=== PATIENT | male | born 1965 | race Caucasian/White ===

== ENCOUNTER 2019-06-16 16:07 | Inpatient (IN) | payer OTHER ==
[~2019-06-16] VITALS: Ht 165.1 cm; Wt 64.9 kg
--- NOTE | 2019-06-16 17:20 | NUR ---
HEADACHE AND DIZZINESS X 2 HOURS FAN BLADE ALIGNER. PATIENT A/OX4, BREATHING EVEN AND UNLABORED, NO SOB NOTED. NEEDS ATTENDED.
--- NOTE | 2019-06-16 17:35 | NUR ---
PATIENT TAKEN TO CT
[2019-06-16] MEDS ORDERED: METOCLOPRAMIDE HCL 10 MG/2 ML VIAL ONE (17:49)
--- NOTE | 2019-06-16 17:55 | NUR ---
patient came back from ct.
[2019-06-16] MEDS ORDERED: METOCLOPRAMIDE HCL 10 MG/2 ML VIAL IV ONE (18:00)
[2019-06-16 18:16] LABS: BASOPHILS # (AUTO) 0.1 /CMM (0.0-0.2); BASOPHILS % (AUTO) 0.9 % (0.0-2.0); EOSINOPHILS % (AUTO) 3.7 % (0.0-6.0); HEMATOCRIT 32 % (39-51); HEMOGLOBIN 10.6 g/dL (13.5-17.5); LYMPHOCYTES # (AUTO) 1.7 /CMM (0.8-4.8); LYMPHOCYTES % (AUTO) 29.3 % (20.0-44.0); MEAN CORPUSCULAR HGB CONC 33 g/dl (31.0-36.0); MEAN CORPUSCULAR VOLUME 94 fL (80-96); MONOCYTES # (AUTO) 0.7 /CMM (0.1-1.30); MONOCYTES % (AUTO) 11.5 % (2.0-12.0); NEUTROPHILS # (AUTO) 3.2 /CMM (1.8-8.9); NEUTROPHILS % (AUTO) 54.6 % (43.0-81.0); PLATELET COUNT (AUTO) 281 /CMM (150-450); WHITE BLOOD COUNT (AUTO) 5.9 K/uL (4.3-11.0)
[2019-06-16 18:29] LABS: ALBUMIN 3.8 g/dL (3.4-5.0); BILIRUBIN,DIRECT 0.1 mg/dL (0.0-0.2); BILIRUBIN,TOTAL 0.4 mg/dL (0.2-1.0); CALCIUM, SERUM 7.8 mg/dL (8.5-10.1); TOTAL PROTEIN, SERUM 8.1 g/dL (6.4-8.2)
[2019-06-16 18:34] LABS: CREATININE 9.5 mg/dL (0.6-1.3); POTASSIUM 6.7 mmol/L (3.5-5.1)
--- NOTE | 2019-06-16 19:24 | NUR ---
CALLED [facility] [phone] LOLLY PAGED
--- NOTE | 2019-06-16 20:09 | NUR ---
REPORT GIVEN TO ANDRE GREY FOR CLARY. TO MS [facility]
[2019-06-16] MEDS ORDERED: CARVEDILOL 6.25 MG TABLET PO ONE (20:30)
[2019-06-16] MEDS ORDERED: HYDROCODONE/APAP 5/325MG 1 EACH TABLET PO PRN (20:30)
[2019-06-16] MEDS ORDERED: Z GUARD REMEDY 2 OZ OINT TP PRN (20:30)
[2019-06-16] MEDS ORDERED: ACETAMINOPHEN 325 MG TABLET PO PRN (20:30)
[2019-06-16] MEDS ORDERED: hydrALAZINE HCL 10 MG TABLET PO ONE (20:30)
[2019-06-16] MEDS ORDERED: ASPIRIN EC 81 MG TABLET.DR PO ONE ×3 (20:30→23:43)
[2019-06-16] MEDS ORDERED: ONDANSETRON HCL/PF 4 MG/2 ML VIAL IVP PRN (20:30)
--- NOTE | 2019-06-16 20:32 | NUR ---
PT TRANPORTED TO [place]IT ON [place] WITH EMT AND RN AT BEDSIDE. NAD NOTED. PT AMBULATED FROM R[place] TO BED W/O ASSIST
[2019-06-16 20:45] VITALS: BP 189/80
--- NOTE | 2019-06-16 20:45 | NUR ---
ADMISSION 53 y/o male admitted for Hyperkalemia. Patient is A/O x4. Ambulates independently, denies pain. Orientation to room, unit, staff. Skin intact, Right chest wall Perma cath. dressing clean and dry. Maintained safety.
[2019-06-16 21:00] VITALS: BP 163/78
--- NOTE | 2019-06-16 21:30 | NUR ---
HEMODIALYSIS Treatment dialysis done, patient tolerated well with 2L output drained.
--- NOTE | 2019-06-16 21:45 | NUR ---
NON ADMINISTERED MEDICATION Current BP 145/72 Pulse76, dialysis in progress. Patient refused Hydralazine and Carvedilol medication PO order once, education provided, verbalized understanding.
[2019-06-16] MEDS ORDERED: PANT40TA2 PO (21:54)
[2019-06-16] MEDS ORDERED: RANI-655 PO (21:54)
[2019-06-16] MEDS ORDERED: DOCU-270 PO (21:54)
[2019-06-16] MEDS ORDERED: VIT1TABL46 PO (21:54)
[2019-06-16] MEDS ORDERED: GLIP5TAB13 PO (21:54)
[2019-06-16] MEDS ORDERED: CYAN1TAB3 PO (22:20)
[2019-06-16] MEDS ORDERED: DEXTROSE 50%-WATER 50 ML DISP.SYRIN IV PRN (23:00)
--- NOTE | 2019-06-16 23:47 | NUR ---
LATE ADMINISTRATION Aspirin PO given late after dialysis treatment done.
[2019-06-17] VITALS (8 sets, daily range): BP systolic 160–180; BP diastolic 73–80
[2019-06-17] MEDS: hydrALAZINE HCL 25 MG TABLET PO PRN ×2 (05:16→17:07)
--- NOTE | 2019-06-17 06:11 | NUR ---
END OF SHIFT REPORT Patient in bed, A/O x4. Sinus rhythm in the Tele monitor. Right chest Perma cath dressing clean and dry. Critical Potassium level 6.7 prior admission to unit yesterday. Dialysis treatment with 2L output. Elevated BP 177/77, given PRN Hydralazine PO, denies headache, no c/o nausea/vomiting. Maintained safety. Will endorse to Oncoming RN.
[2019-06-17] MEDS: BLOOD SUGAR DIAGNOSTIC 1 EACH STRIP IN SCH ×4 (06:31→21:50)
[2019-06-17] MEDS: INSULIN REGULAR, HUMAN 100 UNIT/ML 3 ML VIAL SQ PRN ×3 (06:32→21:52)
[2019-06-17 07:58] LABS: BASOPHILS # (AUTO) 0.1 /CMM (0.0-0.2); BASOPHILS % (AUTO) 1.2 % (0.0-2.0); EOSINOPHILS % (AUTO) 3.9 % (0.0-6.0); HEMATOCRIT 31 % (39-51); HEMOGLOBIN 10.2 g/dL (13.5-17.5); LYMPHOCYTES # (AUTO) 1.2 /CMM (0.8-4.8); LYMPHOCYTES % (AUTO) 25.5 % (20.0-44.0); MEAN CORPUSCULAR HGB CONC 34 g/dl (31.0-36.0); MEAN CORPUSCULAR VOLUME 93 fL (80-96); MONOCYTES # (AUTO) 0.5 /CMM (0.1-1.30); MONOCYTES % (AUTO) 9.8 % (2.0-12.0); NEUTROPHILS # (AUTO) 2.8 /CMM (1.8-8.9); NEUTROPHILS % (AUTO) 59.6 % (43.0-81.0); PLATELET COUNT (AUTO) 261 /CMM (150-450); RED BLOOD CELL COUNT(AUTO) 3.27 MIL/uL (4.5-6.0); WHITE BLOOD COUNT (AUTO) 4.7 K/uL (4.3-11.0)
[2019-06-17] MEDS: CALCIUM ACETATE 667 MG TABLET PO SCH ×3 (08:34→17:07)
[2019-06-17] MEDS: glipiZIDE 5 MG TABLET PO SCH (08:34)
[2019-06-17] MEDS: PANTOPRAZOLE 40 MG TABLET.DR PO SCH (08:35)
[2019-06-17 08:54] LABS: THYROID STIMULATING HORMONE 2.435 uIU/mL (0.358-3.74)
[2019-06-17 08:56] LABS: ALBUMIN 3.3 g/dL (3.4-5.0); BILIRUBIN,TOTAL 0.3 mg/dL (0.2-1.0); CALCIUM, SERUM 7.9 mg/dL (8.5-10.1); MAGNESIUM 2.8 mg/dL (1.8-2.4); PHOSPHORUS 6.8 mg/dL (2.5-4.9); POTASSIUM 5.6 mmol/L (3.5-5.1); TOTAL PROTEIN, SERUM 7.2 g/dL (6.4-8.2)
[2019-06-17 09:00] LABS: CREATININE 8.5 mg/dL (0.6-1.3)
--- NOTE | 2019-06-17 12:18 | NUR ---
Social service consult requested by Dr. Ann for homelessness. Per chart review and MD notes, Pt is a 53-year-old male with a history of hypertension, diabetes, and end-stage renal disease on hemodialysis (, , Thu), presented to the ED for evaluation of occipital headache that onset 2 hours prior to arrival. Pt reported that he missed his dialysis yesterday due to unable to arrange transportation to the dialysis center. RN ADMISSION met with the pt bedside. Pt is alert and oriented x 4. Pt was getting his dialysis at time of assessment. RN ADMISSION introduced self and explained her role. Pt's mood is congruent. Pt is cooperative with RN ADMISSION. Pt states he is homeless and has been for the past 2 years. Prior to being homeless, pt was residing in an apartment and had a job. However, since being on dialysis, pt is not able to sustain employment. Pt states he goes to [facility] located at [facility] in [place]. However, pt is homeless in [place] [place] [facility]. Pt would like to have his dialysis center changed to a location in [place] [place]. Pt reports going to dialysis , Thu and Thursday. RN ADMISSION informed pt she will speak with case management regarding transfer of his dialysis center to [facility] in [place]. Pt has no steady source of income. 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 RN ADMISSION encouraged pt to apply for SSDI and GR/Food stamps. However, pt declined stating, they don't help with anything." Pt denies any drug and alcohol use. Pt. reports to smoke 1 to 2 cigarettes per day. Pt denies any current suicidal and homicidal ideations and visual/auditory hallucinations at this time. Pt is familiar with [facility] and has stayed there in the past. Pt states, he will go to the [facility] again. RN ADMISSION provided pt with active listening and supportive counseling. Pt was provided with [facility] [id number] [facility] list, along with the following resources: [facility] located at [address] [facility] [place] ; [place], [address] [place] ; [facility] [place], [address] [place] [place] ; [facility] Homeless Resource Directory which includes food stamps, transitional housing, showers and hot meals etc; Mental Health clinics such as [facility] ; [facility] Mental Health ; Health clinics;[facility] and Alcohol treatment centers such as [facility], ; [facility] Substance Abuse Hotline and [facility] . Pt will require a TAP card upon discharge. Homeless Patient Waiver Form was placed in pt's chart for pt to sign upon discharge. RN ADMISSION informed rn case manager Chava in regards to transfer of Dialysis center location per pt's request. No other social service needs are requested at this time. RN ADMISSION is available, if needed.
[2019-06-17] MEDS ORDERED: diphenhydrAMINE HCL ELIX 25 MG/10 ML UDC PO PRN (13:30)
--- NOTE | 2019-06-17 14:30 | NUR ---
MS RN NOTES PATIENT WAS SEEN BY ADAMA NGUYNE [facility] WAS PROVIDED PHONE NUMBERS FOR TRANSFORATION TO HD CENTER.
--- NOTE | 2019-06-17 16:00 | NUR ---
MS RN NOTES PATIENT STATES HAS CALLED THE PHONE NUMBERS AND THEY HAVE TOLD HIM THEY DON NOT COVER LONG DISTANCE RIDES FROM [place]. CLAY TEMPERER GAMAL MADE AWARE SHE STATES SHE WILL CONTACT THEM AND CONFIRM.
[2019-06-17] MEDS ORDERED: Calcium Acetate PO (17:26)
--- NOTE | 2019-06-17 19:31 | NUR ---
MS RN NOTES PATIENT IN BED RESTING NO SOB OR ACUTE DISTRESS NOTED. PATIENT ALERT, ORIENTED X 4. PATIENT REFUSING DISCHARGE STATING [facility] ARE CLOSED AND HE DOES NOT HAVE ANY PLACE TO LEAVE. HE STATES HE ALSO HAS NO TRANSPORTATION TO HD. ENDORSED CARE TO PM SHIFT.
--- NOTE | 2019-06-17 19:58 | NUR ---
MS RN OPENING NOTES PATIENT RECEIVED RESTING IN BED A/O X4. STABLE ON RA WITH BREATHING EVEN AND UNLABORED. NO SIGNS OF ACUTE DISTRESS. NO CURRENT COMPLAINTS OF PAIN OR DISCOMFORT. PATIENT WAS SUPPOSED TO BE DISCHARGED- BUT REFUSED. IV WAS ALREADY REMOVED. WILL FOLLOW UP AND CONTINUE TO MONITOR.
--- NOTE | 2019-06-18 06:28 | NUR ---
MS RN CLOSING NOTES PATIENT CURRENTLY RESTING IN BED A/O X 3. STABLE ON RA NO SIGNS OF SOB. NO SIGNS OF ACUTE DISTRESS. NO CURRENT COMPLAINTS OF PAIN OR DISCOMFORT. PATIENT PENDING DISCHARGE, NEEDS TRANSPORTATION AND LONG TERM. WILL ENDORSE TO ONCOMING SHIFT ABOUT CLARY
[2019-06-18] MEDS: BLOOD SUGAR DIAGNOSTIC 1 EACH STRIP IN SCH ×2 (06:36→11:49)
--- NOTE | 2019-06-18 06:36 | NUR ---
MS RN NOTES PATIENT FSBS 66- NO INSULIN GIVEN PER SLIDING SCALE
--- NOTE | 2019-06-18 07:55 | NUR ---
MS RN OPENING NOTES PT IN BED, ASLEEP, EASILY AROUSED, A/O X4. PT TOLERATING RA, WITH NO ACUTE RESPIRATORY DISTRESS NOTED. PT DENIES ANY PAIN OR DISCOMFORT AT THIS TIME. ALSO DENIES ANY QUESTIONS OR CONCERNS. NO IV ACCESS. PER DIRECTOR MICROBIOLOGY NURSE PT SUPPOSED TO GET DISCHARGE YESTERDAY BUT MISSED THE TRANSPORTATION. ALL DISCHARGE PAPERS ARE READY AND SIGNED. PT AWARE. PT KEPT COMFORTABLE IN BED. CALL LIGHT KEPT WITHIN REACH. PT'S BED IN LOWEST, LOCKED POSITION WITH SRX3. WILL CONTINUE PLAN OF CARE.
[2019-06-18 08:00] VITALS: BP 177/79
[2019-06-18] MEDS: CALCIUM ACETATE 667 MG TABLET PO SCH ×2 (08:19→12:03)
[2019-06-18] MEDS: PANTOPRAZOLE 40 MG TABLET.DR PO SCH (08:19)
[2019-06-18] MEDS: glipiZIDE 5 MG TABLET PO SCH (08:19)
[2019-06-18 08:21] VITALS: BP 177/79
[2019-06-18] MEDS: hydrALAZINE HCL 25 MG TABLET PO PRN (08:21)
[2019-06-18 09:40] LABS: BASOPHILS # (AUTO) 0.1 /CMM (0.0-0.2); BASOPHILS % (AUTO) 0.9 % (0.0-2.0); EOSINOPHILS % (AUTO) 3.5 % (0.0-6.0); HEMATOCRIT 32 % (39-51); HEMOGLOBIN 10.8 g/dL (13.5-17.5); LYMPHOCYTES # (AUTO) 1.5 /CMM (0.8-4.8); LYMPHOCYTES % (AUTO) 22.9 % (20.0-44.0); MEAN CORPUSCULAR HGB CONC 34 g/dl (31.0-36.0); MEAN CORPUSCULAR VOLUME 93 fL (80-96); MONOCYTES # (AUTO) 0.6 /CMM (0.1-1.30); MONOCYTES % (AUTO) 9.2 % (2.0-12.0); NEUTROPHILS % (AUTO) 63.5 % (43.0-81.0); PLATELET COUNT (AUTO) 241 /CMM (150-450); RED BLOOD CELL COUNT(AUTO) 3.44 MIL/uL (4.5-6.0); WHITE BLOOD COUNT (AUTO) 6.3 K/uL (4.3-11.0)
[2019-06-18 09:53] LABS: ALBUMIN 3.3 g/dL (3.4-5.0); BILIRUBIN,TOTAL 0.4 mg/dL (0.2-1.0); CALCIUM, SERUM 7.8 mg/dL (8.5-10.1); CREATININE 8.1 mg/dL (0.6-1.3); MAGNESIUM 2.6 mg/dL (1.8-2.4); PHOSPHORUS 7.2 mg/dL (2.5-4.9); POTASSIUM 5.3 mmol/L (3.5-5.1); TOTAL PROTEIN, SERUM 7.1 g/dL (6.4-8.2)
[2019-06-18] MEDS ORDERED: ATENOLOL 50 MG TABLET PO SCH (15:30)
--- NOTE | 2019-06-18 15:32 | NUR ---
MS HEEL ATTACHER NOTES PT A/O X4, AMBULATORY, BEING DISCHARGE TO A [facility]. PT TOLERATING RA, WITH NO ACUTE RESPIRATORY DISTRESS NOTED. PT DENIES ANY PAIN OR DISCOMFORT AT THE TIME OF DISCHARGE. HD TO [facility] ACCESS, DONE WITH 1800ML OUTPUT. SKIN INTACT, PT IN A HURRY TO GO BECAUSE HE'S CATCHING THE BUS TIMES. PT REFUSED FOR RN TO TAKE PICTURE OF THE SCAB, RN EXPLAINED UNIT PROTOCOL AND INSISTED TO REFUSE. PT REVIEWED AND SIGNED DISCHARGE PAPERS AND INVENTORY LIST. ALL BELONGINGS WITH THE PT. VITAL SIGNS STABLE. TAP CARD GIVEN TO PT. EGG SANDWICH AND APPLE JUICES REQUESTED BY PT TO TAKE, RN GAVE IT REQUESTED. PT HAPPY WITH THE CARE PROVIDED. PT ESCORTED TO THE LOBBY. CN/RENETTA AND HOSPITALIST/SA AWARE OF DISCHARGE. PT LEFT THE UNIT AT 1530.
[2019-06-18] MEDS ORDERED: SEVELAMER CARBONATE 800 MG TABLET PO SCH (18:00)
== END 2019-06-18 15:30 | disposition home or self-care (01) | DRG 425 ==
LOC: ER 16:14 → TELE 20:13 → MED 06-17 09:00
PROVIDERS: ADMIT Nurse Practitioner Acute Care
PROC: 5A1D70Z Performance of Urinary Filtration, Intermittent, Less than 6 Hours Per Day (ICD-10-PCS; 2019-06-16)
PROC: 5A1D70Z Performance of Urinary Filtration, Intermittent, Less than 6 Hours Per Day (ICD-10-PCS; principal; 2019-06-17)
PROC: 5A1D70Z Performance of Urinary Filtration, Intermittent, Less than 6 Hours Per Day (ICD-10-PCS; 2019-06-18)
DX: E87.5 Hyperkalemia (principal); E11.22 Type 2 diabetes mellitus with diabetic chronic kidney disease; I12.0 Hypertensive chronic kidney disease with stage 5 chronic kidney disease or end stage renal disease; N18.6 End stage renal disease; E87.1 Hypo-osmolality and hyponatremia; D63.1 Anemia in chronic kidney disease; E83.39 Other disorders of phosphorus metabolism; N25.81 Secondary hyperparathyroidism of renal origin; Z59.0 Homelessness; Z99.2 Dependence on renal dialysis; R51 Headache
CPT/HCPCS: 36415; 70450-TC; 80048-TC; 80053-TC; 80061-TC; 80076-TC; 82962-TC; 83540-TC; 83735-TC; 84100-TC; 84443-TC; 84484-TC; 85025-TC; 86706; 87081-TC; 87340; 90935-TC; 93307-TC; A6403; G0378; J1815; J2765; Q0163

== ENCOUNTER 2019-06-24 17:54 | Emergency (ER) | payer OTHER ==
[~2019-06-24] VITALS: Ht 165.1 cm; Wt 71.2 kg
[~2019-06-24 17:54] MED LIST: CYAN1TAB3 PO; Calcium Acetate PO; DOCU-270 PO; GLIP5TAB13 PO; PANT40TA2 PO; RANI-655 PO; VIT1TABL46 PO
--- NOTE | 2019-06-24 18:00 | NUR ---
BIB RA 78 FROM A BUS, C/O SHORTNESS OF BREATH X 1 Hr pt to bed 11, pt on monitor, vss, nadn oted, pending md villagomez
[2019-06-24 18:52] LABS: BASOPHILS % (AUTO) 0.7 % (0.0-2.0); EOSINOPHILS % (AUTO) 4.2 % (0.0-6.0); HEMATOCRIT 29 % (39-51); HEMOGLOBIN 9.8 g/dL (13.5-17.5); LYMPHOCYTES # (AUTO) 1.9 /CMM (0.8-4.8); LYMPHOCYTES % (AUTO) 36.2 % (20.0-44.0); MEAN CORPUSCULAR HGB CONC 34 g/dl (31.0-36.0); MEAN CORPUSCULAR VOLUME 95 fL (80-96); MONOCYTES # (AUTO) 0.5 /CMM (0.1-1.30); MONOCYTES % (AUTO) 9.1 % (2.0-12.0); NEUTROPHILS # (AUTO) 2.7 /CMM (1.8-8.9); NEUTROPHILS % (AUTO) 49.8 % (43.0-81.0); PLATELET COUNT (AUTO) 245 /CMM (150-450); RED BLOOD CELL COUNT(AUTO) 3.06 MIL/uL (4.5-6.0); WHITE BLOOD COUNT (AUTO) 5.4 K/uL (4.3-11.0)
[2019-06-24 19:04] LABS: CALCIUM, SERUM 7.9 mg/dL (8.5-10.1); CARBON DIOXIDE 28 mmol/L (21-32); CHLORIDE 96 mmol/L (98-107); GLUCOSE 164 mg/dL (74-106); SODIUM SERUM 134 mmol/L (136-145); UREA NITROGEN, BLOOD 61 mg/dL (7-18)
[2019-06-24 19:11] LABS: CREATININE 8.7 mg/dL (0.6-1.3)
[2019-06-24 19:30] VITALS: BP 130/65
[2019-06-24] MEDS ORDERED: SODIUM POLYSTYRENE SULFONATE 15 G/60 ML BOTTLE ONE (19:56)
[2019-06-24] MEDS ORDERED: SODIUM POLYSTYRENE SULFONATE 15 G/60 ML BOTTLE PO ONE (20:00)
--- NOTE | 2019-06-24 20:03 | NUR ---
Patient discharged to home in stable condition. Written and verbal after care instructions given. Patient verbalizes understanding of instruction. IV removed. Catheter intact and site benign. Pressure and 4x4 applied to site. No bleeding noted.
== END 2019-06-24 20:10 | disposition home or self-care (01) ==
LOC: ER 17:59
DX: E11.22 Type 2 diabetes mellitus with diabetic chronic kidney disease (principal); I12.0 Hypertensive chronic kidney disease with stage 5 chronic kidney disease or end stage renal disease; N18.6 End stage renal disease; Z99.2 Dependence on renal dialysis; Z79.899 Other long term (current) drug therapy
CPT/HCPCS: 36415; 71045-TC; 80048-TC; 84484-TC; 85025-TC

== ENCOUNTER 2020-01-09 19:49 | Inpatient (IN) | payer OTHER ==
[~2020-01-09] VITALS: Ht 160 cm; Wt 67.6 kg
--- NOTE | 2020-01-09 19:58 | NUR ---
PT AAOX4. 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 BS-302. PER RA HAS DIALYSIS AND HX OF HTN. NO ACUTE DISTRESS NOTED. PLACED ON MONITOR AND PULSE OX. ALVIN. AT BEDSIDE FOR EVAL.
--- NOTE | 2020-01-09 20:03 | NUR ---
EMT AT BEDSIDE FOR EKG.
[2020-01-09] MEDS ORDERED: MECLIZINE HCL 25 MG TABLET ONE (20:18)
[2020-01-09] MEDS ORDERED: MECLIZINE HCL 25 MG TABLET PO ONE (20:30)
--- NOTE | 2020-01-09 20:37 | NUR ---
SALOONKEEPER AT BEDSIDE FOR LABS.
--- NOTE | 2020-01-09 20:41 | NUR ---
RADIOLOGIST AT BEDSIDE FOR XRAY.
[2020-01-09 20:48] LABS: BASOPHILS # (AUTO) 0.1 /CMM (0.0-0.2); BASOPHILS % (AUTO) 1.5 % (0.0-2.0); HEMATOCRIT 27 % (39-51); HEMOGLOBIN 8.8 g/dL (13.5-17.5); LYMPHOCYTES # (AUTO) 1.4 /CMM (0.8-4.8); LYMPHOCYTES % (AUTO) 26.3 % (20.0-44.0); MEAN CORPUSCULAR HGB CONC 33 g/dl (31.0-36.0); MEAN CORPUSCULAR VOLUME 96 fL (80-96); MONOCYTES # (AUTO) 0.4 /CMM (0.1-1.30); MONOCYTES % (AUTO) 7.8 % (2.0-12.0); NEUTROPHILS # (AUTO) 3.2 /CMM (1.8-8.9); NEUTROPHILS % (AUTO) 61.4 % (43.0-81.0); PLATELET COUNT (AUTO) 346 /CMM (150-450); RED BLOOD CELL COUNT(AUTO) 2.81 MIL/uL (4.5-6.0); WHITE BLOOD COUNT (AUTO) 5.2 K/uL (4.3-11.0)
[2020-01-09 21:04] LABS: CALCIUM, SERUM 7.7 mg/dL (8.5-10.1); POTASSIUM 6.1 mmol/L (3.5-5.1)
[2020-01-09 21:06] LABS: CREATININE 12.2 mg/dL (0.6-1.3)
--- NOTE | 2020-01-09 21:16 | NUR ---
CALLED LAB FOR COVID SWAB
[2020-01-09] MEDS ORDERED: INSULIN REGULAR, HUMAN 100 UNIT/ML 10 ML VIAL IV ONE (21:30)
[2020-01-09] MEDS ORDERED: CALCIUM GLUCONATE IV ONE (21:30)
[2020-01-09] MEDS ORDERED: NS 0.9% IV ONE (21:30)
[2020-01-09] MEDS ORDERED: SODIUM POLYSTYRENE SULFONATE 15 G/60 ML BOTTLE PO ONE ×2 (21:30)
--- NOTE | 2020-01-09 21:42 | NUR ---
COVID SWAB DONE AND SENT TO LAB
[2020-01-09] MEDS ORDERED: INSULIN REGULAR, HUMAN 100 UNIT/ML 10 ML VIAL ONE (21:43)
[2020-01-09] MEDS ORDERED: Calcium Gluconate 0.465 MEQ/ML VIAL IV ONE (21:43)
[2020-01-09] MEDS ORDERED: SODIUM POLYSTYRENE SULFONATE 15 G/60 ML BOTTLE ONE ×2 (21:43→23:22)
--- NOTE | 2020-01-09 22:11 | NUR ---
CALLED LAB FOR PCR COVID
[2020-01-09] MEDS ORDERED: SODIUM BICARBONATE SYR 50 MEQ/50 ML DISP.SYRIN IV ONE (22:30)
[2020-01-09] MEDS ORDERED: DEXTROSE 50%-WATER 50 ML DISP.SYRIN IV PRN (22:30)
[2020-01-09] MEDS ORDERED: BLOOD SUGAR DIAGNOSTIC 1 EACH STRIP IN SCH (22:30)
[2020-01-09] MEDS ORDERED: ZOLPIDEM TARTRATE 5 MG TABLET PO PRN (23:00)
[2020-01-09] MEDS ORDERED: HYDROCODONE/APAP 5/325MG TABLET PO PRN (23:00)
[2020-01-09] MEDS ORDERED: Z GUARD REMEDY 2 OZ OINT TP PRN (23:00)
[2020-01-09] MEDS ORDERED: MAG HYDROX/AL HYDROX/SIMETH 30 ML UDC PO PRN (23:00)
[2020-01-09] MEDS ORDERED: ACETAMINOPHEN 325 MG TABLET PO PRN (23:00)
[2020-01-09] MEDS ORDERED: MORPHINE SULFATE INJ 2 MG/ML DISP.SYRIN IV PRN (23:00)
[2020-01-09] MEDS ORDERED: MAGNESIUM HYDROXIDE 30 ML UDC PO PRN (23:00)
[2020-01-09] MEDS ORDERED: ONDANSETRON HCL/PF 4 MG/2 ML VIAL IVP PRN (23:00)
--- NOTE | 2020-01-09 23:16 | NUR ---
REPORT GIVEN TO GENO PWOELL FOR CLARY
--- NOTE | 2020-01-09 23:25 | NUR ---
SPOKE TO CAROL BRICENO REGARDIGN KAYXLATE. PT IS SUPPOSED TO RECIEVE 30MG. 30MG WAS GIVEN IN E.D.
--- NOTE | 2020-01-09 23:26 | NUR ---
PT TRANSFERED PER ACLS PROTOCOL
[2020-01-09 23:30] VITALS: BP 129/64
--- NOTE | 2020-01-09 23:30 | NUR ---
MANUFACTURING TEACHERTRACER POWDER BLENDER NOTE RECEIVED PATIENT VIA GURNEY. AMBULATED TO BED WITH STAND BY ASSIST. A/OX4. TOLERATING ROOM AIR. RESPIRATIONS ARE EVEN AND UNLABORED. NO S/S SOB NOTED. NO C/O PAIN AT THIS TIME. EXTERNAL TELE MONITOR READS SINUS RHYTHM HR HR 68. IN NO APPARENT DISTRESS. IV ACCESS IN RIGHT WRIST #20 PATENT AND SALINE LOCKED. INATAL PHYSICAL ASSESSMENT COMPLETED AT THIS TIME. SKIN ASSESSMENT COMPLETED AT THIS TIME, PHOTOS TAKEN AND PLACED IN CHART. MEDICAL TRANSCRIPTIONIST OBTAINED VITAL SIGNS AND COMPLETED BELONGING LIST. BED IS LOW AND LOCKED HOB ELEVATED IN HIGH FOWLERS, SIDE RIALS UP X2, CALL LIGHT WITHIN REACH. WILL CONTINUE TO MONITOR.
[2020-01-09 23:45] VITALS: BP 129/64
--- NOTE | 2020-01-10 00:30 | NUR ---
INTERNET SOURCER NOTE CALLED EPIC EXCHANGE FOR PRESSURE DISPATCHER MD. AWAITING CALL.
[2020-01-10] MEDS: HEPARIN SODIUM, PORCINE 5000 UNITS/1 ML VIAL SQ SCH ×3 (00:38→23:43)
--- NOTE | 2020-01-10 01:30 | NUR ---
telecom engineer note CALLED MACHINE TOOL TECHNOLOGY INSTRUCTOR MD DR. ALIDA STEEN TO ASK FOR CONFIRMATION ON AN ORDER FOR SODIUM BICARB 50MEQ IVP. ALSO INFORMED HIM THAT PATIENT STATES BURNING AND PAIN WHEN URINATING. ALSO INFORMED HIM THAT THERE IS NO INSULIN COVERAGE FOR HS ONLY AC. TELEPHONE ORDER GIVE SODIUM BICARB X1 ORDERED, DO A UA AND URINE CULTURE FOR PATIENT. ADD THE INSULIN SLIDING SCALE FOR HS. ORDERS READ BACK, NOTED AND CARRIED OUT.
--- NOTE | 2020-01-10 01:50 | NUR ---
SAMPLE SHOE INSPECTOR AND REWORKER NOTE FAXED SODIUM BICARB 50MEQ TO NURSING GLASS CUTTER HAND D/T THE ONE IN OUR OMNI CELL IS .
--- NOTE | 2020-01-10 01:54 | NUR ---
BOOKING SUPERVISOR NOTE PATIENT REFUSED INSULIN COVERAGE FOR BLOOD SUGAR 195. INFORMED OF RISK AND BENEFITS CONTINUES TO REFUSE AT THIS TIME. WILL CONTINUE TO MONITOR.
[2020-01-10] MEDS ORDERED: *INSULIN REGULAR(HUMULIN R)HUM 100 UNIT/ML VIAL SQ PRN (02:00)
[2020-01-10] MEDS ORDERED: INSULIN REGULAR, HUMAN 100 UNIT/ML 3 ML VIAL SQ PRN (02:00)
[2020-01-10] MEDS ORDERED: DEXTROSE 50%-WATER 50 ML DISP.SYRIN IV PRN (02:00)
[2020-01-10] MEDS ORDERED: SODIUM BICARBONATE SYR 50 MEQ/50 ML DISP.SYRIN ONE (02:01)
[2020-01-10] MEDS: BLOOD SUGAR DIAGNOSTIC 1 EACH STRIP IN SCH ×4 (06:43→23:43)
[2020-01-10] MEDS: INSULIN REGULAR, HUMAN 100 UNIT/ML 3 ML VIAL SQ PRN (06:47)
[2020-01-10 06:51] LABS: BASOPHILS # (AUTO) 0.1 /CMM (0.0-0.2); BASOPHILS % (AUTO) 1.5 % (0.0-2.0); EOSINOPHILS % (AUTO) 4.6 % (0.0-6.0); HEMATOCRIT 29 % (39-51); HEMOGLOBIN 9.7 g/dL (13.5-17.5); LYMPHOCYTES # (AUTO) 2.5 /CMM (0.8-4.8); LYMPHOCYTES % (AUTO) 39.1 % (20.0-44.0); MEAN CORPUSCULAR HGB CONC 33 g/dl (31.0-36.0); MEAN CORPUSCULAR VOLUME 95 fL (80-96); MONOCYTES # (AUTO) 0.6 /CMM (0.1-1.30); MONOCYTES % (AUTO) 9.9 % (2.0-12.0); NEUTROPHILS # (AUTO) 2.8 /CMM (1.8-8.9); NEUTROPHILS % (AUTO) 44.9 % (43.0-81.0); PLATELET COUNT (AUTO) 368 /CMM (150-450); RED BLOOD CELL COUNT(AUTO) 3.07 MIL/uL (4.5-6.0); WHITE BLOOD COUNT (AUTO) 6.3 K/uL (4.3-11.0)
--- NOTE | 2020-01-10 07:28 | NUR ---
SATELLITE TV TECHNICIAN INSTALLER CLOSING NOTE PATIENT IN BED. A/OX4. TOLERATING ROOM AIR. NO RESPIRATORY DISTRESS NOTED. NO S/S PAIN THROUGHOUT NIGHT. TELE MONITOR READS SINUS RHYTHM.NO DISTRESS. IV ACCESS MAINTAINED IN RIGHT WRIST #20 PATENT AND SALINE LOCKED. BED REMAINS LOW AND LOCKED HOB ELEVATED IN HIGH FOWLERS, SIDE RIALS UP X2, CALL LIGHT WITHIN REACH. WILL ENDORSE TO NEXT SHIFT.
--- NOTE | 2020-01-10 07:30 | NUR ---
LOGISTICS OPERATIONS DIRECTOR NOTES PATIENT RECEIVED IN BED, SLEEPING EASILY AWAKEN BY NAME, ALERT AND ORIENTED. ON ROOM AIR WITH NO RESPIRATORY DISTRESS NOTED AT THIS TIME, AND NON-LABORED BREATHING. ON METAL CUT OFF SAW TENDER, NORMAL SINUS RHYTHM 67. PATIENT SKIN WARM AND DRY TO TOUCH, IV ACCESS INTACT AND PATENT. PATIENT PRESENTS WITH NO PAIN AT THIS TIME. SAFETY PRECAUTIONS IMPLEMENTED WITH BED LOCKED, BED IN THE LOWEST POSITION, BILATERAL SIDE RAILS UP, AND CALL LIGHT WITHIN EASY REACH OF THE PATIENT. WILL CONTINUE TO MONITOR PATIENT.
[2020-01-10 07:36] LABS: ALBUMIN 3.5 g/dL (3.4-5.0); BILIRUBIN,DIRECT 0.1 mg/dL (0.0-0.2); BILIRUBIN,TOTAL 0.4 mg/dL (0.2-1.0); CALCIUM, SERUM 7.6 mg/dL (8.5-10.1); MAGNESIUM 3.1 mg/dL (1.8-2.4); POTASSIUM 4.3 mmol/L (3.5-5.1); TOTAL PROTEIN, SERUM 7.9 g/dL (6.4-8.2)
[2020-01-10 07:46] LABS: CREATININE 12.5 mg/dL (0.6-1.3); PHOSPHORUS 9.3 mg/dL (2.5-4.9)
[2020-01-10 07:49] LABS: THYROID STIMULATING HORMONE 0.709 uIU/mL (0.358-3.74)
[2020-01-10 08:00] VITALS: BP 148/80
--- NOTE | 2020-01-10 10:05 | NUR ---
WOUND CARE CONSULT: PT PRESENTS WITH LONG CURLING TOENAILS AND REQUESTING NAIL TRIM. DR CA NOTIFIED OF DPM CONSULT REQUEST. WILL SEE PRN.
[2020-01-10] MEDS ORDERED: EPOETIN ALFA (10,000 UNIT) 10,000 UNIT/ML VIAL IV ONE (12:30)
[2020-01-10] MEDS: CALCIUM ACETATE 667 MG TABLET PO SCH ×2 (13:00→17:25)
--- NOTE | 2020-01-10 15:30 | NUR ---
MS RN NOTES PATIENT IV ACCESS INFILTRATED, REMOVED IV ACCESS CATHETER TIP INTACT AND APPLIED PRESSURE TO SITE. MULTIPLE ATTEMPTS MADE BUT UNSUCCESSFUL. INFORMED LIBIA MONK, HOSPITALIST, NO NEW ORDERS AT THIS TIME, AND WILL CONTINUE TO MONITOR PATIENT.
[2020-01-10 16:00] VITALS: BP 149/71
--- NOTE | 2020-01-10 18:30 | NUR ---
MS RN NOTES PATIENT IN BED, RESTING COMFORTABLY. ALERT AND ORIENTED X 4. ON ROOM AIR WITH NO SIGNS OF RESPIRATORY DISTRESS AT THIS TIME, WITH NON-LABORED BREATHING, AND NO SOB NOTED. NO IV ACCESS, LIBIA MONK, HOSPITALIST AWARE. SKIN WARM AND DRY TO TOUCH. PATIENT PRESENTS WITH NO PAIN OR DISCOMFORT AT THIS TIME. MET ALL OF PATIENT NEEDS. SAFETY PRECAUTIONS IN PLACE WITH BED LOCKED, BED IN THE LOWEST POSITION, BILATERAL SIDE RAILS UP, AND CALL LIGHT WITHIN EASY REACH OF THE PATIENT. WILL ENDORSE PLAN OF CARE TO UPCOMING NURSE.
--- NOTE | 2020-01-10 19:30 | NUR ---
RN OPENING NOTES BEDSIDE REPORT DONE, PT A/OX3, ON ROOM AIR, BREATHING EVEN AND UNLABORED. DENIES SOB AND PAIN AT THIS TIME. NO IV ACCESS, MD AWARE. NO COMPLAINTS AT THIS TIME. HOB ELEVATED 30 DEGREES. BED IN LOW/LOCKED POSITION WITH CALL LIGHT IN REACH. SIDE RAILS UPX3 AND BED ALARM ON FOR SAFETY. PT AWARE THAT HE WILL BE CHANGING ROOMS
[2020-01-10 20:00] VITALS: BP 165/75
--- NOTE | 2020-01-10 20:00 | NUR ---
PT TRANSPORTED TO ROOM 201 IN STABLE CONDITION
[2020-01-10 22:50] VITALS: BP 192/81
--- NOTE | 2020-01-10 22:53 | NUR ---
HEMODIALYSIS ENDED 1,000CC OUT; BP 192/81, HR 69
[2020-01-10 23:30] VITALS: BP 200/84
--- NOTE | 2020-01-10 23:54 | NUR ---
RN NOTES BP RECHECKED, 200/84, HR 75. PT WITH NO C/O PAIN. NO IV ACCESS. NOTIFIED DR. SUERO. WITH TELEPHONE ORDERS FOR CLONIDINE 0.2MG PO PRN Q6H BP >160/90
[2020-01-11] MEDS ORDERED: CLONIDINE HCL 0.1 MG TABLET ONE (00:08)
[2020-01-11] MEDS: CLONIDINE HCL 0.1 MG TABLET PO PRN ×2 (00:14→16:39)
[2020-01-11] MEDS: BLOOD SUGAR DIAGNOSTIC 1 EACH STRIP IN SCH ×3 (06:55→17:09)
[2020-01-11] MEDS: INSULIN REGULAR, HUMAN 100 UNIT/ML 3 ML VIAL SQ PRN (06:55)
--- NOTE | 2020-01-11 07:10 | NUR ---
RN CLOSING NOTES PT ASLEEP, RESPONSIVE TO NAME. REMAINS ON ROOM AIR, BREATHING EVEN AND UNLABORED. DENIES SOB AND PAIN, IN NO ACUTE DISTRESS. RIGHT UPPER CHEST HD CATH IN PLACE. DRESSING C/D/I. NO IV ACCESS. NO SIGNIFICANT CHANGES OVERNIGHT. ALL NEEDS MET AND ATTENDED. BED REMAINS IN LOW/LOCKED POSITION WITH CALL LIGHT IN REACH. SIDE RAILS UPX3. BED ALARM ON FOR SAFETY. ENDORSED TO DAY SHIFT ANDRE MEANS.
--- NOTE | 2020-01-11 07:15 | NUR ---
MS/RN - Assessment Patient is A/O x 4, no complaints overnight, denies pain, no apparent distress, stable on room air, ambulatory with steady gait. Patient refused blood draw this morning, will notify MD. All needs attended. Will continue with current plan of care.
[2020-01-11 08:00] VITALS: BP 150/66
[2020-01-11] MEDS: HEPARIN SODIUM, PORCINE 5000 UNITS/1 ML VIAL SQ SCH (08:23)
[2020-01-11] MEDS: CALCIUM ACETATE 667 MG TABLET PO SCH ×3 (08:23→17:09)
--- NOTE | 2020-01-11 15:49 | NUR ---
11:45am respiratory services manager left a voicemail on [facility] mainline asking for a call back regarding the patient. SW to remain available to the patient as needed
--- NOTE | 2020-01-11 15:49 | NUR ---
11:00am Remote Computer Terminal Operator met with the patient at bedside for Remote Computer Terminal Operator consult. Patient is alert and oriented x4. Patient is a 54-year-old male, and reports being homeless. Patient was receptive to speaking with this transition social worker. Patient confirmed date of and social security on the face sheet. Prior to admission, patient reports that he was living at [facility]. Patient informed this SW that it was on [facility]. Patient would like to return there after discharge. Patient states that he is independent with ambulation and his ADLs. 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 This SW affirmed the patient on his sobriety. The patient reports no drug use. Patient denies auditory and visual hallucination. Patient denies suicidal ideation. Patient would like to return to [facility] after discharge and provided verbal consent to this SW to contact [facility] on his behalf, stating Can you call them and let them know Im here at the hospital. This SW to follow-up. This SW to provide the patient with homeless community resources. SW to remain available to the patient as needed.
[2020-01-11 16:00] VITALS: BP 198/75
[2020-01-11 17:30] VITALS: BP 158/65
--- NOTE | 2020-01-11 18:24 | NUR ---
MS/RN - Discharge Patient is alert and oriented x 4, remain afebrile, denies pain, not in any form of distress, ambulatory with steady gait, denies homelessness, stated I live with my friends. Reviewed discharge instructions with patient and he verbalized full understanding of all teachings including medications and follow up with PCP and HD treatment as scheduled. Seek immediate medical attention for worsening symptoms, chest pain, shortness of breath, palpitations, abdominal pain or distention, intractable nausea and vomiting, diarrhea, weakness, loss of consciousness, neurological deficit, or any other emergent concerns. All belongings with patient and he deny any missing items. Patient refused photos to be taken of skin, no breakdown. Patient signed discharge paperwork and copies were given per protocol. Taxi voucher was provided per pts request.
== END 2020-01-11 18:54 | disposition home or self-care (01) | DRG 425 ==
LOC: ER 19:51 → TELE 22:44 → MED 01-10 10:12 → MEDSG2 01-10 19:35
PROVIDERS: ADMIT Nurse Practitioner Acute Care; ATTEND Nurse Practitioner Acute Care
PROC: 5A1D70Z Performance of Urinary Filtration, Intermittent, Less than 6 Hours Per Day (ICD-10-PCS; principal; 2020-01-10)
DX: E87.5 Hyperkalemia (principal); E11.22 Type 2 diabetes mellitus with diabetic chronic kidney disease; E11.65 Type 2 diabetes mellitus with hyperglycemia; D63.8 Anemia in other chronic diseases classified elsewhere; D68.59 Other primary thrombophilia; I12.0 Hypertensive chronic kidney disease with stage 5 chronic kidney disease or end stage renal disease; N18.6 End stage renal disease; N17.9 Acute kidney failure, unspecified; D63.1 Anemia in chronic kidney disease; E83.39 Other disorders of phosphorus metabolism; Z99.2 Dependence on renal dialysis; F17.200 Nicotine dependence, unspecified, uncomplicated; E11.40 Type 2 diabetes mellitus with diabetic neuropathy, unspecified; N25.81 Secondary hyperparathyroidism of renal origin; Z79.84 Long term (current) use of oral hypoglycemic drugs; Z79.899 Other long term (current) drug therapy; Z91.19 Patient's noncompliance with other medical treatment and regimen; Z91.15 Patient's noncompliance with renal dialysis; H54.62 Unqualified visual loss, left eye, normal vision right eye; E87.70 Fluid overload, unspecified; E87.2 Acidosis; E78.5 Hyperlipidemia, unspecified; I67.2 Cerebral atherosclerosis; Z74.09 Other reduced mobility; L60.3 Nail dystrophy; R26.9 Unspecified abnormalities of gait and mobility
CPT/HCPCS: 36415; 70450-TC; 71045-TC; 80048-TC; 80061-TC; 80076-TC; 82962-TC; 83540-TC; 83735-TC; 84100-TC; 84443-TC; 84484-TC; 85025-TC; 86706; 87081-TC; 87340; 90935-TC; C9803-CS; G0378; J0610; J0885; J1644; J1815; J3490; J7030; J8597

== ENCOUNTER 2020-07-25 04:50 | Inpatient (IN) | payer OTHER ==
[~2020-07-25] VITALS: Ht 165.1 cm; Wt 61.2 kg
--- NOTE | 2020-07-25 05:14 | NUR ---
[facility] C/O "CLOGGED JUDITH FISTULA" PT WAS NOT ABLE TO PROCEED W/ THE HD. LAST DIALYSIS ON THURSDAY. PT ALSO WITH C.O ABD PAIN, NAUSEA AND DIARRHEA SINCE LAST NIGHT. PT AMBULATORY TO THE ER BED 7 WAS PLACED ON A MONITOR .
[2020-07-25 05:33] LABS: BASOPHILS # (AUTO) 0.1 /CMM (0.0-0.2); BASOPHILS % (AUTO) 0.9 % (0.0-2.0); HEMATOCRIT 32 % (39-51); HEMOGLOBIN 10.4 g/dL (13.5-17.5); LYMPHOCYTES # (AUTO) 1.2 /CMM (0.8-4.8); LYMPHOCYTES % (AUTO) 18.1 % (20.0-44.0); MEAN CORPUSCULAR HGB CONC 33 g/dl (31.0-36.0); MEAN CORPUSCULAR VOLUME 94 fL (80-96); MONOCYTES # (AUTO) 0.6 /CMM (0.1-1.30); MONOCYTES % (AUTO) 8.8 % (2.0-12.0); NEUTROPHILS # (AUTO) 4.6 /CMM (1.8-8.9); NEUTROPHILS % (AUTO) 67.2 % (43.0-81.0); PLATELET COUNT (AUTO) 275 /CMM (150-450); RED BLOOD CELL COUNT(AUTO) 3.36 MIL/uL (4.5-6.0); WHITE BLOOD COUNT (AUTO) 6.9 K/uL (4.3-11.0)
[2020-07-25 05:49] LABS: BILIRUBIN,DIRECT 0.1 mg/dL (0.0-0.2); BILIRUBIN,TOTAL 0.5 mg/dL (0.2-1.0); CALCIUM, SERUM 6.6 mg/dL (8.5-10.1)
[2020-07-25 05:55] LABS: CREATININE 11.5 mg/dL (0.6-1.3)
--- NOTE | 2020-07-25 06:05 | NUR ---
dr tamez at bed side
--- NOTE | 2020-07-25 06:20 | NUR ---
negative covid antigen result
--- NOTE | 2020-07-25 06:21 | NUR ---
covid swab pcr collected and sent to the lab.
[2020-07-25] MEDS ORDERED: ONDANSETRON HCL/PF - ER 4 MG/2 ML VIAL IV ONE (06:30)
[2020-07-25] MEDS ORDERED: Calcium Gluconate 1GM/10ML 4.65 MEQ in IV D5W 50 ML IV ONE (06:30)
[2020-07-25] MEDS ORDERED: Calcium Gluconate 0.465 MEQ/ML VIAL IV ONE (06:32)
[2020-07-25] MEDS ORDERED: ONDANSETRON HCL/PF 4 MG/2 ML VIAL ONE (06:33)
--- NOTE | 2020-07-25 07:35 | NUR ---
The patient is received taking nap in ER bed #7. The patient is alert and oriented x4. Denies pain. In room air and denies sob. Respiration regular and unlabored. The patient in no apparent distress. Will continue to monitor.
--- NOTE | 2020-07-25 07:59 | NUR ---
BED REQUESTED FROM NURSING SAND MILL GRINDER.
[2020-07-25] MEDS ORDERED: LIDOCAINE VISCOUS 2% UD 15 ML UDC MM ONE (08:00)
[2020-07-25] MEDS ORDERED: MAGNESIUM HYDROXIDE 30 ML UDC PO PRN (08:00)
[2020-07-25] MEDS ORDERED: Z GUARD REMEDY 2 OZ OINT TP PRN (08:00)
[2020-07-25] MEDS ORDERED: ZOLPIDEM TARTRATE 5 MG TABLET PO PRN (08:00)
[2020-07-25] MEDS ORDERED: ONDANSETRON HCL/PF 4 MG/2 ML VIAL IVP PRN (08:00)
[2020-07-25] MEDS ORDERED: ACETAMINOPHEN 325 MG TABLET PO PRN (08:00)
[2020-07-25] MEDS ORDERED: *INSULIN REGULAR(HUMULIN R)HUM 100 UNIT/ML VIAL SQ PRN (08:00)
[2020-07-25] MEDS ORDERED: MAG HYDROX/AL HYDROX/SIMETH 30 ML UDC PO PRN (08:00)
[2020-07-25] MEDS ORDERED: MAG HYDROX/AL HYDROX/SIMETH 30 ML UDC PO ONE (08:00)
[2020-07-25] MEDS ORDERED: LABETALOL 20 MG/4 ML VIAL IV ONE (08:00)
[2020-07-25] MEDS ORDERED: DEXTROSE 50%-WATER 50 ML DISP.SYRIN IV PRN (08:00)
[2020-07-25] MEDS ORDERED: LIDOCAINE VISCOUS 2% UD 15 ML UDC ONE (08:42)
[2020-07-25] MEDS ORDERED: MAG HYDROX/AL HYDROX/SIMETH 30 ML UDC ONE (08:43)
[2020-07-25] MEDS ORDERED: LABETALOL HCL IV 100MG VIAL ONE (08:43)
--- NOTE | 2020-07-25 09:24 | NUR ---
Patient in bed and attached to the monitor. The patient in no apparent distress.
--- NOTE | 2020-07-25 10:08 | NUR ---
VERBAL AUTHORIZATION MADYSON SHUTTLE ROUTE VEHICLE OPERATOR.
--- NOTE | 2020-07-25 10:39 | NUR ---
Patient is tranfsered per ACLS protocol and the patient in stable conditon.
[2020-07-25] MEDS ORDERED: SODIUM POLYSTYRENE SULFONATE 15 G/60 ML BOTTLE RC ONE (11:00)
--- NOTE | 2020-07-25 11:00 | NUR ---
WEAVING TEACHER NOTE RECEIVED REPORT FROM RN PERLA VIA PHONE. PATIENT IS IN BED WITH HOB AT SEMI FOWLERS POSITION. 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 CURRENTLY ON ROOM AIR WITH NO SIGNS OF LABORED BREATHING. SKIN IS INTACT. #20 YASMANY IS PATENT, INTACT, AND HAS NO SIGNS OF INFILTRATION. JUDITH FISTULA IS CLOGGED PER CHIEF COMPLAINT. BED IS LOCKED IN THE LOWEST POSITION, 3 GUARD RAILS RAISED, CALL BARRERA WITHIN REACH, AND ALL HOSPITAL SAFETY PRECAUTIONS ARE BEING FOLLOWED. WILL CONTINUE TO MONITOR THROUGHOUT SHIFT.
[2020-07-25] MEDS: PANTOPRAZOLE 40 MG TABLET.DR PO SCH (11:37)
[2020-07-25] MEDS: DOCUSATE SODIUM 100 MG CAPSULE PO SCH ×2 (11:37→17:15)
[2020-07-25] MEDS: BLOOD SUGAR DIAGNOSTIC 1 EACH STRIP VI SCH ×3 (11:56→22:00)
[2020-07-25 12:00] VITALS: BP 197/78
[2020-07-25] MEDS: CALCIUM ACETATE 667 MG TABLET PO SCH ×2 (13:21→17:16)
[2020-07-25 16:00] VITALS: BP 143/58
--- NOTE | 2020-07-25 16:22 | NUR ---
Protein Specialist Note: Protein Specialist consult was requested for this 54 year old patient due to homelessness. SW met with the patient at bedside to conduct an evaluation. Patient appears to be alert and oriented x4 (time, place, self and situation). Patient is a 54-year-old male, and reports being homeless. Patient was receptive to speaking with this social services specialist. Patient informed the SW that he was in a lot of pain in his stomach area. Patient confirmed his date of and social security on the face sheet. When the SW inquired about his homeless status, patient reports that he is living at [facility] located on [facility]. Patient states that would like to return there after discharge and SW stated that she would call them to arrange this discharge plan once he is stable. Patient states that he does not have any family or friends that can offer any support for him. Patient states that he is independent with ambulation. Patient appears to be disheveled and malodorous. Patient was able to maintain appropriate eye contact and tone of voice. Patient reports history of alcohol use however stated that he has been sober from alcohol use for 20 years and reports that he is not breaking it soon. SW commended him on his sobriety and the patient appeared to be grateful. The patient reports that he does not have a history of drug use. Patient denies auditory and visual hallucination as well as suicidal and homicidal ideation. Patients insight and judgment appears to be impaired and the patients impulse control appears to be poor. Plan: Patient would like to return to [facility] after discharge and provided verbal consent to this SW to contact [facility] on his behalf. SW called [facility] ([phone]) and left a voicemail regarding this patient. This SW to follow-up. SW also provided the patient with homeless community resources. SW provided patient with a copy of the [facility] homeless directory which provides information on locations for hot meals, sack lunches, food pantries, and showers. SW provided an additional list of mental health clinics: [facility] [address] [place] [address] ([phone]); [facility] [place] [address] ([phone]); a list of medical clinics; [facility] [address] [facility] [address], [place]. [place], ; [facility] [address] [facility], [facility] [address], [place]. SW Provided [facility] [address] [place] [address]: ([phone]). Patient was provided with a brief substance abuse intervention and referred to the following substance abuse programs: [facility] Substance Abuse Self-helpline ([phone]); [facility] [address] [place] [address] ([phone]); [facility] [address] [facility] [address] ([phone]); [facility] ([phone]); [facility] ([phone]); [facility] ([phone]); [facility] ([phone]). SW to remain available to the patient as needed.
[2020-07-25] MEDS: FAMOTIDINE (20 MG) 20 MG TABLET PO SCH (17:16)
--- NOTE | 2020-07-25 17:41 | NUR ---
FILL MANAGER NOTE PATIENT REFUSED ACCU CHECK. EDUCATED PATIENT ON THE POTENTIAL RISKS OF NOT HAVING ACCU CHECK. STILL WOULD NOT LET ME ADMINISTER.
--- NOTE | 2020-07-25 19:21 | NUR ---
RN CLOSING NOTE PATIENT IS IN BED WITH HOB AT SEMI FOWLERS POSITION. 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 CURRENTLY ON ROOM AIR WITH NO SIGNS OF LABORED BREATHING. SKIN IS INTACT. #20 YASMANY IS PATENT, INTACT, AND HAS NO SIGNS OF INFILTRATION. JUDITH FISTULA IS CLOGGED PER CHIEF COMPLAINT. BED IS LOCKED IN THE LOWEST POSITION, 3 GUARD RAILS RAISED, CALL BARRERA WITHIN REACH, AND ALL HOSPITAL SAFETY PRECAUTIONS ARE BEING FOLLOWED. PATIENT IS TO BE KEPT NPO AFTER MIDNIGHT. WILL ENDORSE TO STATISTICIAN RN.
[2020-07-25 20:00] VITALS: BP 150/54
[2020-07-25 21:20] LABS: CALCIUM, SERUM 6.3 mg/dL (8.5-10.1)
[2020-07-25 21:22] LABS: CREATININE 12.5 mg/dL (0.6-1.3); POTASSIUM 6.3 mmol/L (3.5-5.1)
--- NOTE | 2020-07-25 21:55 | NUR ---
TELE-1/SHAKE BACKBOARD NOTCHER CRITICAL LABS REPORTED TO DR. BAUTISTA, POTASSIUM 6.3, BUN 81 AND CREATININE 12.5. NEW ORDERS RECEIVED GIVE 1 AMP BICARB AND [address] BAUTISTA DOES NOT WANT AN AMP OF D50W GIVEN AT THIS TIME BLOOD SUGAR 222. WILL CONTINUE TO MONITOR CLOESLY
[2020-07-25] MEDS ORDERED: INSULIN REGULAR, HUMAN 100 UNIT/ML 3 ML VIAL IV ONE (22:00)
[2020-07-25] MEDS ORDERED: SODIUM BICARBONATE SYR 50 MEQ/50 ML DISP.SYRIN IV ONE (22:00)
--- NOTE | 2020-07-25 22:04 | NUR ---
MED NOTE: POC GLUCOSE ACCUCHECK NOT DONE. GLUCOSE WAS DRAWN WITH 2100 BMP GLUCOSE WAS 222.
[2020-07-26] VITALS (8 sets, daily range): BP systolic 150–184; BP diastolic 48–81
--- NOTE | 2020-07-26 | NUR ---
TELE-1/INSPECTOR AUTOMATIC TYPEWRITER PT NPO FO SURGERY.
[2020-07-26 05:48] LABS: BASOPHILS # (AUTO) 0.1 /CMM (0.0-0.2); EOSINOPHILS % (AUTO) 3.4 % (0.0-6.0); HEMATOCRIT 30 % (39-51); HEMOGLOBIN 10.4 g/dL (13.5-17.5); LYMPHOCYTES # (AUTO) 1.3 /CMM (0.8-4.8); LYMPHOCYTES % (AUTO) 18.8 % (20.0-44.0); MEAN CORPUSCULAR HGB CONC 34 g/dl (31.0-36.0); MEAN CORPUSCULAR VOLUME 92 fL (80-96); MONOCYTES # (AUTO) 0.6 /CMM (0.1-1.30); MONOCYTES % (AUTO) 8.4 % (2.0-12.0); NEUTROPHILS # (AUTO) 4.8 /CMM (1.8-8.9); NEUTROPHILS % (AUTO) 68.4 % (43.0-81.0); PLATELET COUNT (AUTO) 255 /CMM (150-450); RED BLOOD CELL COUNT(AUTO) 3.29 MIL/uL (4.5-6.0); WHITE BLOOD COUNT (AUTO) 7.1 K/uL (4.3-11.0)
--- NOTE | 2020-07-26 05:55 | NUR ---
TELE-1/SECURITY ASSESSOR PT REFUSING TELE MONITOR AT THIS TIME. PT EDUCATED TO BENEFIT OF WEARING TELE MONITOR AND RISK OF NOT WEARING IT. PT STATES HE "JUST WANTS TO SLEEP". WILL CONTINUE TO MONITOR.
[2020-07-26 06:11] LABS: CALCIUM, SERUM 6.6 mg/dL (8.5-10.1); MAGNESIUM 3.3 mg/dL (1.8-2.4); POTASSIUM 5.1 mmol/L (3.5-5.1)
[2020-07-26 06:14] LABS: CREATININE 12.5 mg/dL (0.6-1.3)
--- NOTE | 2020-07-26 07:02 | NUR ---
TELE-1/LOGGING CONTRACTOR WILL ENDORSE CRITICAL PHOS LEVEL 16 TO AM SHIFT. PT TO HAVE HD CATH PLACED THIS MORNING.
--- NOTE | 2020-07-26 07:30 | NUR ---
[facility] PHARMACY TECH AM NOTE PATIENT IS IN BED WITH HOB AT SEMI FOWLERS POSITION. 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 CURRENTLY ON ROOM AIR, NO SOB. SINUS RHYTHM ON MONITOR. #20 YASMANY IV ACCESS, FLUSHES WELL, SITE CLEAR. FISTULA IS CLOGGED PER CHIEF COMPLAINT, THRILL PRESENT. NPO FOR NOW, FOR POSSIBLE LEFT FISTULA THROMBECTOMY C/O DR. MOODY, CONSENTS SIGNED. BED IS LOCKED IN THE LOWEST POSITION, CALL [facility] WITHIN REACH, AND SAFETY PRECAUTIONS IN PLACED. WILL CONTINUE TO FOLLOW UP.
[2020-07-26] MEDS: CALCIUM ACETATE 667 MG TABLET PO SCH ×3 (08:00→17:18)
[2020-07-26] MEDS: BLOOD SUGAR DIAGNOSTIC 1 EACH STRIP VI SCH ×4 (08:02→22:00)
--- NOTE | 2020-07-26 08:10 | NUR ---
RN NOTES PATIENT PICKED UP FOR SCHEDULED SURGERY.
[2020-07-26] MEDS ORDERED: LIDOCAINE HCL/MPF 1% 30 ML VIAL IJ ONE (08:14)
[2020-07-26] MEDS ORDERED: HEPARIN SODIUM, PORCINE 1,000 UNIT/ML VIAL ONE (08:15)
[2020-07-26] MEDS ORDERED: SUCCINYLCHOLINE CHLORIDE 20 MG/ML VIAL ONE (08:20)
[2020-07-26] MEDS ORDERED: FENTANYL PF 100MCG/2ML AMPUL ONE (08:20)
[2020-07-26] MEDS: DOCUSATE SODIUM 100 MG CAPSULE PO SCH ×2 (08:59→17:21)
[2020-07-26] MEDS: FAMOTIDINE (20 MG) 20 MG TABLET PO SCH ×2 (08:59→17:21)
[2020-07-26] MEDS: PANTOPRAZOLE 40 MG TABLET.DR PO SCH (09:00)
--- NOTE | 2020-07-26 09:30 | NUR ---
RN NOTES DUE MEDS GIVEN
[2020-07-26] MEDS ORDERED: IOHEXOL 240MG/ML 50 ML IV ONE (09:36)
--- NOTE | 2020-07-26 11:07 | NUR ---
RN NOTES PATIENT BACK FROM SCHEDULED SURGERY, S/P LEFT CHEST WALL PERMACATH PLACEMENT BY DR. MOODY. VS BP 161/81, NC 74 O2 SATURATION 97 % ON ROOM AIR. ALL POST OP ORDERS CARRIED OUT.
[2020-07-26] MEDS ORDERED: BACITRACIN ZINC OINT PACKET 1 EA PACKET TP ONE (11:42)
--- NOTE | 2020-07-26 12:12 | NUR ---
RN NOTES HOLD [address] GALINDO.
[2020-07-26] MEDS: HYDROCODONE/APAP 5/325MG TABLET PO PRN ×2 (12:16→19:39)
[2020-07-26] MEDS: ANCEF 1 GM/50 ML D5W IV SCH ×2 (17:21)
[2020-07-26] MEDS: INSULIN REGULAR, HUMAN 100 UNIT/ML 3 ML VIAL SQ PRN (17:35)
--- NOTE | 2020-07-26 18:32 | NUR ---
CARTON INSPECTOR CLOSING NOTE PATIENT RESTING IN BED, WITH HOB AT SEMI FOWLERS POSITION. 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 CURRENTLY ON ROOM AIR, NO SOB. SINUS RHYTHM ON MONITOR. #20 YASMANY IV ACCESS, FLUSHES WELL, SITE CLEAR. S/P LEFT UPPER ARM FISTULA THROMBECTOMY AND PERMACATH PLACEMENT TO LCW BY DR. MOODY.CDI DRESSINGS. CCHO 60GMS DIET. BED IS LOCKED IN THE LOWEST POSITION, CALL [facility] WITHIN REACH, AND SAFETY PRECAUTIONS IN PLACED. ALL NEEDS MET. FOR HD TONIGHT.WILL ENDORSE TO NEXT SHIFT FRO CLARY.
[2020-07-27] VITALS: BP_SYST 132; BP_SYST 174; BP_DIAS 36; BP_DIAS 66
[2020-07-27] MEDS: ANCEF 1 GM/50 ML D5W IV SCH ×2 (00:25)
[2020-07-27 04:00] VITALS: BP 157/92
[2020-07-27] MEDS: HYDROCODONE/APAP 5/325MG TABLET PO PRN ×2 (05:47→11:14)
[2020-07-27 08:00] VITALS: BP 151/50
--- NOTE | 2020-07-27 08:00 | NUR ---
PATIENT RECEIVED IN BED, ALERT AND ORIENTED X 4. PATIENT ON ROOM AIR NO RESPIRATORY DISTRESS. PT IV ACCESS INTACT AND FLUSHED WELL NO SIGNS OF INFECTION OR INFILTRATION. PT HD CATH DRESSING INTACT. PATIENT IS INDEPENDENT TO BATHROOM. PATIENT TO POSSIBLY HAVE HD TODAY, WILL FOLLOW UP. ALL SAFETY MEASURES IN PLACE. WILL CONTINUE TO MONITOR
[2020-07-27] MEDS: PANTOPRAZOLE 40 MG TABLET.DR PO SCH (08:02)
[2020-07-27] MEDS: CALCIUM ACETATE 667 MG TABLET PO SCH ×3 (08:03→17:30)
[2020-07-27] MEDS: FAMOTIDINE (20 MG) 20 MG TABLET PO SCH ×2 (08:03→17:30)
[2020-07-27] MEDS: DOCUSATE SODIUM 100 MG CAPSULE PO SCH ×2 (08:03→17:30)
[2020-07-27] MEDS: BLOOD SUGAR DIAGNOSTIC 1 EACH STRIP VI SCH ×3 (08:03→17:30)
[2020-07-27] MEDS: INSULIN REGULAR, HUMAN 100 UNIT/ML 3 ML VIAL SQ PRN ×2 (08:05→17:31)
[2020-07-27 12:00] VITALS: BP 157/50
[2020-07-27 16:00] VITALS: BP 160/66
--- NOTE | 2020-07-27 16:36 | NUR ---
TER[facility] Coordination of Care: SW spoke with the patient about his D/C to [facility]. Pt was unable to provide the contact information to coordinate the D/C with [facility]. SW called [facility] and unable to speak with anyone. Pt appears to be alert and oriented x4. Pt was able to provide information for the contact for transportation with [facility] . Case management will call to arrange transportation.
--- NOTE | 2020-07-27 18:00 | NUR ---
PATIENT DISCHARGED TO [facility], TRANSPORTATION ARRANGED BY CM. ALL DC PAPERS SIGNED AND PRESCRIPTIONS GIVEN, PATIENT BELONGINGS CHECKED AND RETURNED TO PATIENT. PATIENT IV ACCESS AND WRISTBANDS REMOVED AT BEDSIDE. PATIENT LAST VITALS TEMP 98.7, PULSE 78, RESP 18, O2 SAT 100%, BP 150/66. PATIENT ESCORTED VIA WHEELCHAIR TO [facility]OBBY WITH RADIO INTERFERENCE SUPERVISOR.
== END 2020-07-27 18:10 | disposition home or self-care (01) | DRG 182 ==
LOC: ER 04:54 → TELE1 10:12 → MEDSG1 07-27 12:13
PROVIDERS: ADMIT Internal Medicine; ATTEND Internal Medicine
PROC: 05CY0ZZ Extirpation of Matter from Upper Vein, Open Approach (ICD-10-PCS; principal; 2020-07-26)
PROC: 0JH63XZ Insertion of Tunneled Vascular Access Device into Chest Subcutaneous Tissue and Fascia, Percutaneous Approach (ICD-10-PCS; 2020-07-26)
PROC: 02HV33Z Insertion of Infusion Device into Superior Vena Cava, Percutaneous Approach (ICD-10-PCS; 2020-07-26)
PROC: B518YZA Fluoroscopy of Superior Vena Cava using Other Contrast, Guidance (ICD-10-PCS; 2020-07-26)
PROC: 5A1D70Z Performance of Urinary Filtration, Intermittent, Less than 6 Hours Per Day (ICD-10-PCS; 2020-07-26)
DX: T82.41XA Breakdown (mechanical) of vascular dialysis catheter, initial encounter (principal); I12.0 Hypertensive chronic kidney disease with stage 5 chronic kidney disease or end stage renal disease; N18.6 End stage renal disease; E87.5 Hyperkalemia; E11.22 Type 2 diabetes mellitus with diabetic chronic kidney disease; E11.65 Type 2 diabetes mellitus with hyperglycemia; D64.9 Anemia, unspecified; Y83.2 Surgical operation with anastomosis, bypass or graft as the cause of abnormal reaction of the patient, or of later complication, without mention of misadventure at the time of the procedure; Y92.009 Unspecified place in unspecified non-institutional (private) residence as the place of occurrence of the external cause; Z99.2 Dependence on renal dialysis; H54.62 Unqualified visual loss, left eye, normal vision right eye; K21.9 Gastro-esophageal reflux disease without esophagitis; Z79.84 Long term (current) use of oral hypoglycemic drugs; F17.200 Nicotine dependence, unspecified, uncomplicated
CPT/HCPCS: 36415; 71045-TC; 76705-TC; 80048-TC; 80076-TC; 82962-TC; 83735-TC; 84100-TC; 84132-TC; 85025-TC; 85730-TC; 86850-TC; 90935-TC; A6209; A6253; C1750; C1757; C1769; C9803; G0378; J0330; J0610; J0690; J1644; J1815; J2405; J2704; J3010; J3490; J7060; Q9966; U0003